=== PATIENT | female | born 1995 | race Caucasian/White ===

== ENCOUNTER 2024-05-15 09:35 | Emergency (ER) | payer BC ==
[~2024-05-15] VITALS: Ht 170.2 cm; Wt 49.9 kg
[2024-05-15] MEDS ORDERED: diphenhydrAMINE HCL 50 MG/ML VIAL ONE (10:30)
[2024-05-15] MEDS ORDERED: METOCLOPRAMIDE HCL 10 MG/2 ML VIAL ONE (10:30)
[2024-05-15] MEDS: diphenhydrAMINE HCL 50 MG/ML VIAL IV ONE (10:32)
[2024-05-15] MEDS: IV NS 0.9% 1,000 ML BAG IV ONE (10:32)
[2024-05-15] MEDS: METOCLOPRAMIDE HCL 10 MG/2 ML VIAL IV ONE (10:32)
[2024-05-15 10:38] LABS: BASOPHILS % (AUTO) 0.1 % (0.0-2.0); EOSINOPHILS % (AUTO) 0.6 % (0.0-6.0); HEMATOCRIT 38 % (33-45); LYMPHOCYTES # (AUTO) 1.4 K/uL (0.8-4.8); LYMPHOCYTES % (AUTO) 19.2 % (20.0-44.0); MEAN CORPUSCULAR HEMOGLOBIN 29 PG (26.0-33.0); MEAN CORPUSCULAR HGB CONC 35 g/dl (31.0-36.0); MEAN CORPUSCULAR VOLUME 82 fL (82-100); MONOCYTES # (AUTO) 0.6 K/uL (0.1-1.30); MONOCYTES % (AUTO) 8.8 % (2.0-12.0); NEUTROPHILS # (AUTO) 5.3 K/uL (1.8-8.9); NEUTROPHILS % (AUTO) 71.3 % (43.0-81.0); PLATELET COUNT (AUTO) 197 K/uL (150-450); RED BLOOD CELL COUNT(AUTO) 4.58 MIL/uL (4.0-5.2); RED CELL DISTRIBUTION WIDTH 12.9 % (11.5-15.0); WHITE BLOOD COUNT (AUTO) 7.4 K/uL (4.3-11.0)
[2024-05-15 10:43] LABS: CALCIUM, SERUM 9.2 mg/dL (8.5-10.1); CREATININE 0.6 mg/dL (0.6-1.3); POTASSIUM 4.2 mmol/L (3.5-5.1)
[2024-05-15 11:50] LABS: APPEARANCE,URINE CLEAR (CLEAR); BILIRUBIN,URINE NEGATIVE (NEGATIVE); BLOOD, URINE 1+ Ery/uL (NEGATIVE); COLOR,URINE YELLOW (YELLOW); KETONES,URINE 1+ mg/dL (NEGATIVE); LEUKOCYTE ESTERASE ,URINE TRACE (NEGATIVE); NITRITE, URINE NEGATIVE (NEGATIVE); PROTEIN,URINE NEGATIVE (NEGATIVE); UGLUCOSE NEGATIVE (NEGATIVE); UROBILINOGEN,URINE 0.2 EU/dL (0.2)
[2024-05-15 11:54] LABS: PREGNANCY TEST URINE QUAL POSITIVE (NEGATIVE)
[2024-05-15] MEDS: KETOROLAC TROMETHAMINE INJ 30 MG/ML VIAL IV ONE (11:55)
[2024-05-15] MEDS: AMOX/CLAVULANATE 875 MG TABLET PO ONE (12:00)
[2024-05-15 12:05] LABS: ADD URINE CULTURE NO; BACTERIA,URINE 1+ /HPF (None Seen)
[2024-05-15] MEDS ORDERED: AMOX/CLAVULANATE 875 MG TABLET ONE (14:18)
[2024-05-15] MEDS ORDERED: AMOX-430 PO (14:40)
[2024-05-15 16:51] VITALS: BP 101/63; TEMP 97.8
[2024-05-15 17:05] VITALS: BP 105/62; TEMP 97.7
[2024-05-15 17:24] VITALS: BP 105/62; TEMP 97.7; O2SAT 100
== END 2024-05-15 17:25 | disposition home or self-care (01) ==
LOC: ER 09:35
DX: O46.90 Antepartum hemorrhage, unspecified, unspecified trimester (principal); O26.899 Other specified pregnancy related conditions, unspecified trimester; R00.0 Tachycardia, unspecified; J01.90 Acute sinusitis, unspecified; R10.2 Pelvic and perineal pain
CPT/HCPCS: 99285; 96374; 76856; 70450; 96361; 96375; 93005; 85025; 80048; 84703; 81001; 36415; 84484; 84702; 96372; J1200; J2765; J7030; J2790